=== PATIENT | male | born 1990 | race Hispanic/Latino ===

== ENCOUNTER 2018-08-02 17:14 | Emergency (ER) | payer MEDICAID, OTHER ==
[2018-08-02] MEDS ORDERED: NAPROXEN 500 MG TABLET ONE (18:43)
== END 2018-08-02 19:00 | disposition home or self-care (01) ==
LOC: EDH 17:14
DX: S76.811A Strain of other specified muscles, fascia and tendons at thigh level, right thigh, initial encounter (principal); X58.XXXA Exposure to other specified factors, initial encounter; Y93.89 Activity, other specified; Y92.89 Other specified places as the place of occurrence of the external cause; Y99.8 Other external cause status

== ENCOUNTER 2024-04-10 08:10 | Emergency (ER) | payer SELFPAY ==
[~2024-04-10] VITALS: Ht 175.3 cm; Wt 127.0 kg
[2024-04-10] MEDS: ketOROlac 30MG VIAL (30MG/ML) IM ONE (08:45)
[2024-04-10] MEDS: dexaMETHasone SOD PHOSPHATE 4 MG/ML 1ML VIAL IM ONE (08:45)
--- NOTE | 2024-04-10 08:53 | ERN ---
General Chief Complaint: Cough Stated Complaint: COUGH, CONGESTION, BODY ACHES Time Seen by MD: 08:14 Source: patient History of Present Illness Initial Comments Patient is a 33-year-old male coming in to be evaluated for cough. Patient states that the cough has been ongoing for one month. Patient has been evaluated at several ERs but states he has not been thoroughly checked. He also is concerned about his blood pressure being elevated. Allergies: Coded Allergies: No Known Drug Allergies (Unverified Allergy, 09/28/11) Past Medical History Past Medical History: No Pertinent History Past Surgical History: None ROS Dictation CONSTITUTIONAL: No chills, no fever, no weakness, no diaphoresis, no malaise. HEAD/FACE: No signs of trauma. EENT: No eye pain, no blurred vision, no tearing, no double vision, ear pain, no ear discharge, no nose pain, nasal congestion, no throat pain, no throat swelling, no mouth pain. RESPIRATORY: No cough, no orthopnea, no SOB, no stridor, no wheezing. CARDIOVASCULAR: No chest pain, no edema, no palpitations, no syncope. GASTROINTESTINAL/ABDOMINAL: No abdominal pain, no constipation, no diarrhea, no nausea, no vomiting. GENITOURINARY: No abnormal discharge, no dysuria, no frequent urination, no hematuria. No complaints of pain in the genitals. MUSCULOSKELETAL: No back pain, no gout, no joint pain, no joint swelling, no muscle pain, no muscle stiffness, no neck pain. INTEGUMENTARY: No change in color, no change in hair/nails, no dryness, no lesion, no lumps, no rash. NEUROLOGICAL/PSYCH: No anxiety, not depressed, no emotional problem, no headache, no numbness, no pre-existing deficit, no history of seizures, no tremors, no weakness. HEMATOLOGIC/LYMPHATIC: Not anemic, no history of blood clots, no apparent bleeding, no bruising, glands not swollen. All Systems Negative, Except as Noted. Physical Exam Physical Exam Dictation VITAL SIGNS: Reviewed. GENERAL APPEARANCE: Alert, oriented x3, no acute distress, obese. HEAD AND FACE: Non-traumatic. EYES: PERRL, pink conjunctivas, eyelid no trauma, anterior chamber clear. EARS: Pinnas intact and no signs of trauma or erythema. Ear canals clear and no discharge. TMs erythema. NOSE: No discharge, no bleeding. OROPHARYNX: Mouth normal, teeth no caries, tongue pink. Pharynx erythema. Tonsils no exudates, no abscesses noted. Mucous membrane moist. NECK: Supple, non-tender, no thyromegaly, no masses, no JVD, no bruits. BREAST: Deferred. CHEST: No tenderness, no crepitus, no paradoxical movement, no retractions. LUNGS: Clear, well-ventilated, symmetric, no rales, no wheezing, no rhonchi, no stridor, good breath sounds bilaterally. HEART: Regular rate, regular rhythm, no murmur, no gallops. VASCULAR: No peripheral edema. ABDOMEN: Soft, positive bowel sounds, nondistended, no guarding, nontender, no rebound, no masses no hepatomegaly, no splenomegaly, no Fang's sign, no h ernias. RECTAL: Deferred. GENITAL: Deferred. NEUROLOGICAL: Normal speech, gross motor function intact, gross sensory functi on intact. MUSCULOSKELETAL: Neck nontender, full range of motion, back nontender, full range of motion. EXTREMITIES: Nontender, full range of motion. SKIN: Color pink, dry, no turgor, no rash, no lacerations, no abrasions, no contusions. LYMPHATICS: Deferred. Results Laboratory and Microbiology Labs Reviewed?: Yes EKG/XRAY/US/CT/MRI X-RAY Comment CHEST [id number] CONGESTION MDM MDM: DIFFERENTIAL DIAGNOSIS: URI, SINUSITIS PATIENT IS A 33-YEAR-OLD MALE COMING IN TO BE EVALUATED FOR COUGH. UPON EVALUATION CHEST X-RAY IS PERIBRONCHIAL CONGESTION. AND ON PHYSICAL EXAM THERE IS SINUS CONGESTION LEFT TYMPANIC MEMBRANE ERYTHEMA. PATIENT WILL BE DISCHARGED WITH A DIAGNOSIS OF SINUSITIS AND URI. ED Course Orders Procedure Category Date Status Time Ipratropium/Albuterol PHA 04/10/24 Complete Neb (Duoneb) 08:30 Dexamethasone 4mg/Ml PHA 04/10/24 Complete 1ml Vial (Dexametha 08:30 Ketorolac PHA 04/10/24 Complete Tromethamine 30mg/Ml 08:30 Chest 1vw RAD 04/10/24 Taken 08:31 Current Medications Medications (Trade) Dose Ordered Sig/Jourdan Route PRN Reason Start Time Stop Time Status Last Admin Dose Admin Albuterol (DUOneb) 1 udvial ONCE ONCE 04/10/24 08:30 04/10/24 08:33 DC 04/10/24 09:01 Dexamethasone Sodium Phosphate (dexaMETHasone 4MG/ML 1ML VIAL) 4 mg ONCE ONCE IM 04/10/24 08:30 04/10/24 08:33 DC 04/10/24 08:45 Ketorolac Tromethamine (toRADol) 30 mg ONCE ONCE IM 04/10/24 08:30 04/10/24 08:33 DC 04/10/24 08:45 Vital Signs Date Time Temp Pulse Resp B/P (MAP) Pulse Ox O2 Delivery O2 Flow Rate FiO2 04/10/24 09:32 97.9 88 20 149/81 96 Room Air* 0 21 04/10/24 09:02 104 20 04/10/24 08:30 97.9 90 18 155/82 95 Room Air* 0 21 04/10/24 08:12 97.9 88 16 151/92 96 Room Air 0 DX & DISP Disposition: Discharge Departure Impression: Primary Impression: URI (upper respiratory infection) Additional Impression: Sinusitis Condition: Stable Scripts Albuterol Sulfate (Ventolin Hfa) 90 Mcg Hfa.aer.ad 2 PUFF IH Q4HPRN PRN for wheezing for 30 Days, #18 GM 0 Refills Prov: GONZALEZ KNOTT MD 04/10/24 Amoxicillin/Potassium Clav (Amox Tr-K Clv 875-125 mg Tab) 875 Mg-125 Mg Tablet 1 TAB PO BID for 10 Days, #20 TAB 0 Refills Prov: GONZALEZ KNOTT MD 04/10/24 Additional Instructions: FOLLOW-UP WITH PRIMARY CARE PROVIDER IN 1 TO 2 DAYS. TAKE MEDICATIONS DIRECTED HERE IN THE EMERGENCY ROOM. OKAY TO CONTINUE HOME MEDICATIONS UNLESS OTHERWISE DISCUSSED DURING YOUR VISIT IN THE EMERGENCY ROOM TODAY. RETURN TO YOUR NEAREST EMERGENCY ROOM IF SYMPTOMS WORSEN OR IF THERE IS NO IMPROVEMENT. CALL 911 IF YOU NEED IMMEDIATE ASSISTANCE. TAKE TYLENOL [id number] NEEDED AND IF NO CONTRAINDICATIONS ARE PRESENT. INCREASE ORAL HYDRATION. A WOUND CULTURE OR URINE CULTURE WAS ORDERED HERE IN THE EMERGENCY ROOM DEPARTMENT PLEASE FOLLOW-UP WITH PRIMARY CARE PROVIDER AND ADVISE THEM TO GET REPEAT PORTS FROM OUR FACILITY. IF YOU HAD ANY KWAME WRAP/SPLINTS THAT WERE APPLIED HERE, PLEASE DO NOT REMOVE THEM UNTIL YOU SEE YOUR PRIMARY CARE OR SPECIALTY. REFERRALS: Referrals: NONE (PCP) MASOOD ESPINOZA MD Time of Disposition: 09:35 GONZALEZ KNOTT MD Apr 10, 2024 08:53
[2024-04-10] MEDS: IpraTROPium/alBUTERol SULFATE 3 ML SOLUTION IH ONE (09:01)
[2024-04-10 09:02] VITALS: PULSE 104; RESP 20
[2024-04-10 09:32] VITALS: BP 149/81; PULSE 88; RESP 20; TEMP 97.9; O2SAT 96
[2024-04-10] MEDS ORDERED: ALBU18HF7 IH (09:36)
[2024-04-10] MEDS ORDERED: AMOX1TAB16 PO (09:36)
--- NOTE | 2024-04-10 09:49 | HMCIMG ---
CHEST 1VW REASON: cough COMPARISON: None. FINDINGS: Single view of the chest was obtained. There is minimal focal infiltrate in the right lower lobe. This could be early or mild pneumonia. Lungs are otherwise clear. Heart, mediastinum and bony thorax appear unremarkable. IMPRESSION: 1. Minimal focal infiltrate in the right lower lobe. Heart size is normal. There is no pulmonary vascular congestion. Mediastinum and bony thorax appear unremarkable. IMPRESSION: 1. Normal single view chest x-ray.
== END 2024-04-10 09:49 | disposition home or self-care (01) ==
LOC: EDH 08:10
DX: J06.9 Acute upper respiratory infection, unspecified (principal); J32.9 Chronic sinusitis, unspecified
CPT/HCPCS: 99284; 71045; 96372 ×2; 94640; J1100; J1885